=== PATIENT | female | born 1965 | race Caucasian/White ===

== ENCOUNTER 2018-09-25 06:59 | Day surgery (SDC) | payer OTHER ==
[2018-09-25] MEDS ORDERED: CEFAZOLIN 1 GM INJ (07:00)
[2018-09-25 08:03] LABS: ADD MAN DIFF? NO
[2018-09-25 08:10] LABS: BASOPHILS % 0.5 % (0.0-2.0); EOSINOPHILS # 0.2 10^3/ul (0.0-0.5); EOSINOPHILS % 2.7 % (0.0-7.0); HEMATOCRIT 43.1 % (37.0-47.0); HEMOGLOBIN 14.2 g/dl (12.0-16.0); LYMPHOCYTES # 1.4 10^3/ul (0.8-2.9); LYMPHOCYTES % 18.2 % (15.0-51.0); MEAN CORPUSCULAR HEMOGLOBIN 29.5 pg (29.0-33.0); MEAN CORPUSCULAR HGB CONC 32.9 g/dl (32.0-37.0); MEAN CORPUSCULAR VOLUME 89.4 fl (82.0-101.0); MONOCYTE # 0.8 10^3/ul (0.3-0.9); MONOCYTES % 9.7 % (0.0-11.0); NEUTROPHIL # 5.4 10^3/ul (1.6-7.5); NEUTROPHILS % 68.6 % (39.0-77.0); PLATELET COUNT 264 10^3/UL (140-415); RED BLOOD COUNT 4.82 10^6/ul (4.20-5.40); RED CELL DISTRIBUTION WIDTH 13.1 % (11.5-14.5)
[2018-09-25 08:10] LABS: WHITE BLOOD COUNT 7.8 10^3/ul (4.8-10.8)
[2018-09-25 08:30] LABS: INR 0.89; PROTIME 12.2 Sec (11.9-14.9)
[2018-09-25 08:31] LABS: PARTIAL THROMBOPLASTIN TIME 29.5 Sec (23.0-35.0)
[2018-09-25 08:34] LABS: ANION GAP 11 (5-13); BLOOD UREA NITROGEN 19 mg/dl (7-20); CALCIUM 9.6 mg/dl (8.4-10.2); CARBON DIOXIDE 26 mmol/L (21-31); CHLORIDE 105 mmol/L (97-110); CREATININE 0.57 mg/dl (0.44-1.00); Estimated GFR > 60 mL/min (>60); GLUCOSE 105 mg/dl (70-220); POTASSIUM 4.2 mmol/L (3.5-5.1); SODIUM 142 mmol/L (135-144)
[2018-09-25] MEDS ORDERED: PROPOFOL 20 ML (09:50)
[2018-09-25] MEDS ORDERED: ROCURONIUM 50 MG INJ (09:52)
[2018-09-25] MEDS ORDERED: DEXAMETHASONE 4 MG/ML 5 ML INJ (10:05)
[2018-09-25] MEDS: POLYMYXIN/BACITRACIN 1L IRRIG (10:25)
[2018-09-25] MEDS ORDERED: ONDANSETRON 4 MG INJ (10:53)
[2018-09-25] MEDS ORDERED: ROPIVACAINE 0.5 % 30 ML VIAL (10:53)
[2018-09-25] MEDS ORDERED: LIDOCAINE 1% (MDV) 20 ML INJ (10:55)
[2018-09-25] MEDS ORDERED: GLYCOPYRROLATE 0.4 MG INJ (11:17)
[2018-09-25] MEDS ORDERED: NEOSTIGMINE 3 MG/3 ML SYRINGE (11:17)
[2018-09-25] MEDS ORDERED: DIPHENHYDRAMINE 50 MG INJ IV (11:30)
[2018-09-25] MEDS ORDERED: ONDANSETRON 4 MG INJ IV (11:30)
[2018-09-25] MEDS ORDERED: MEPERIDINE 25 MG INJ IV (11:30)
[2018-09-25] MEDS ORDERED: OXYCODONE/ACETAMINOPHEN (5/325) TAB PO ×2 (11:30)
[2018-09-25] MEDS ORDERED: morphine (1 MG/ML) 10ML SYRINGE IV ×3 (11:30)
[2018-09-25] MEDS ORDERED: LABETALOL HCL 20MG INJ IV (11:30)
== END 2018-09-25 13:36 | disposition home or self-care (01) ==
LOC: SDS 06:59
DX: S52.602K Unspecified fracture of lower end of left ulna, subsequent encounter for closed fracture with nonunion (principal); X58.XXXD Exposure to other specified factors, subsequent encounter
CPT/HCPCS: 25400; 71045; 73090; 80048; 85025; 85610; 85730; 93005

== ENCOUNTER 2018-11-14 07:49 | Day surgery (SDC) | payer OTHER ==
[~2018-11-14 07:49] MED LIST: CLINDAMYCIN 900 MG/50 ML D5W IVPB IVPB; LACTATED RINGER'S 1,000 ML IV*; PROPOFOL 200 MG INJ
[2018-11-14] MEDS: POLYMYXIN/BACITRACIN 1L IRRIG (09:21)
[2018-11-14] MEDS: BUPIVACAINE 0.5% (SDV) 30 ML INJ (09:21)
[2018-11-14] MEDS ORDERED: PROPOFOL 20 ML (09:24)
[2018-11-14] MEDS ORDERED: FENTAnyl 50 MCG/ML VIAL (09:29)
[2018-11-14] MEDS ORDERED: CEFAZOLIN 1 GM INJ (09:30)
[2018-11-14] MEDS ORDERED: DEXAMETHASONE 4 MG/ML 5 ML INJ (09:31)
[2018-11-14] MEDS ORDERED: ONDANSETRON 4 MG INJ ×2 (09:33→10:46)
[2018-11-14] MEDS ORDERED: KETOROLAC 30 MG INJ (09:54)
[2018-11-14] MEDS ORDERED: LABETALOL HCL 20MG INJ IV (11:00)
[2018-11-14] MEDS ORDERED: hydrALAzine 20 MG INJ IV (11:00)
[2018-11-14] MEDS ORDERED: ALBUTEROL 0.083% (NEB) 2.5 MG/3 ML AMP HHN (11:00)
[2018-11-14] MEDS ORDERED: FENTAnyl 50 MCG/ML VIAL IV ×3 (11:00)
[2018-11-14] MEDS ORDERED: KETOROLAC 30 MG INJ IV (11:00)
[2018-11-14] MEDS ORDERED: HYDROmorphONE 1 MG/5 ML IV SYRINGE IV ×3 (11:00→11:05)
[2018-11-14] MEDS ORDERED: DIPHENHYDRAMINE 50 MG INJ IV (11:00)
[2018-11-14] MEDS ORDERED: EPHEDrine SULFATE 50 MG/5 ML SYG IV (11:00)
[2018-11-14] MEDS ORDERED: MEPERIDINE 25 MG INJ IV (11:00)
[2018-11-14] MEDS ORDERED: OXYCODONE/ACETAMINOPHEN (5/325) TAB PO ×2 (11:00)
[2018-11-14] MEDS: HYDROmorphONE 1 MG/5 ML IV SYRINGE IV (11:36)
[2018-11-14] MEDS: ONDANSETRON 4 MG INJ IV (11:37)
== END 2018-11-14 13:00 | disposition home or self-care (01) ==
LOC: SDS 07:49
DX: S56.41 Strain of extensor muscle, fascia and tendon of other and unspecified finger at forearm level (principal); X58.XXXD Exposure to other specified factors, subsequent encounter
CPT/HCPCS: 26497